=== PATIENT | female | born 1955 | race Caucasian/White ===

== ENCOUNTER 2019-03-29 16:31 | Inpatient (IN) | payer MEDICARE | END 2019-04-02 15:20 | LOC: EDH 16:31 → EDHIP 16:32 → 3CH 18:31 | DX: J96.20 Acute and chronic respiratory failure, unspecified whether with hypoxia or hypercapnia (principal); J44.1 Chronic obstructive pulmonary disease with (acute) exacerbation; Z99.81 Dependence on supplemental oxygen ==

== ENCOUNTER → 2024-05-27 | Outpatient (CLI) | payer MEDICARE ==
[~2024-05-27] MED LIST: ALBU2.5V2 IH; ALBU8.5H8 IH; BUDE10.2 IH; BUDE180A2 IH; CLOT10TR PO; TIOT18CA3 IH
== END | disposition home or self-care (01) ==
LOC: RAH 13:13
PROVIDERS: ATTEND Family Medicine
DX: I70.203 Unspecified atherosclerosis of native arteries of extremities, bilateral legs (principal); I70.211 Atherosclerosis of native arteries of extremities with intermittent claudication, right leg
CPT/HCPCS: 93925

== ENCOUNTER → 2024-08-21 | Outpatient (CLI) | payer MEDICARE ==
--- NOTE | 2024-08-22 19:13 | HMCSR ---
APPROVED REPORT EXAM: Two-dimensional and M-mode echocardiogram with Doppler and color Doppler. INDICATION ICD: R06.00 Dyspnea 2D Dimensions RVDd3.4 cmLVEF(%)65.8 (>50%)LVED Vol(simp.)70.0 mL IVSd1.2 (0.7-1.1cm)FS(%)36 %LVES Vol(simp.)28.0 mL LVDd4.1 (3.8-5.6cm)Ao Root(2D)2.9 (2.0-3.7cm)LVEF(%, simp.)60 % PWd1.1 (0.7-1.1cm)LVOT diam2.0 (1.8-2.4cm)LA ESV INDEX (BP)31.99 mL/m2 LVDs2.7 (2.5-4.0cm)IVC diam1.3 cm Aortic Valve AoV Vmax1.6 m/Nick Peak GR10.3 mmHgLVOT Vmax1.2 m/s AoV VTI0.3 mAo Mean GR4.8 mmHgLVOT VTI0.27 m ROLAND (VMAX)2.5 cm2AVA (VTI) 2.5 cm2 Mitral Valve MV E Vmax78.5 cm/sDECEL Kquo617 ms MV A Ajby170.5 cm/sP 1/2 T62 ms E/A ratio0.8MVA (PHT)3.6 cm2 MR Max PG51 mmHg TDI E/E' Qnlgfr52.2E/E' Gtigiob87.6 Pulmonary Valve PV Vmax1.2 m/sPV VTI0.25 mPV Mean GR4 mmHg PV Peak GR5.7 mmHgPI End Marylou. Peterson 1.4 cm/s Tricuspid Valve TR Vmax2.5 m/sRAP (EST) 3 oyGsXFNB34.1 mmHg TR Peak GR25.1 mmHg Left Ventricle The left ventricle structure and function is normal. There is normal LV segmental wall motion. There is mild concentric left ventricular hypertrophy. LVEF is 60-65%. The left ventricular diastolic funct ion is normal. Right Ventricle The right ventricle is normal size. The right ventricular systolic function is normal. Atria The left atrium size is normal. The right atrium size is normal. Aortic Valve Aortic valve is trileaflet. Aortic valve leaflets are sclerotic but open well. No aortic regurgitatio n is present. There is no aortic valvular stenosis. Mitral Valve Mitral valve leaflets are mildly sclerotic but open well. Mitral regurgitation is trace. There is no mitral valve stenosis. Tricuspid Valve The tricuspid valve leaflets appear normal. There is trace tricuspid regurgitation. Pulmonic Valve The pulmonic valve leaflets are thin and pliable; valve motion is normal. There is trace to mild valv ular regurgitation. Great Vessels The aortic root is normal in size. The IVC is normal in size and collapses >50% with inspiration. Pericardium No pericardial effusion. Conclusion LVEF is 60-65%. Mitral regurgitation is trace.
== END | disposition home or self-care (01) ==
LOC: SHCH 13:57
PROVIDERS: ATTEND Internal Medicine Cardiovascular Disease
DX: I08.8 Other rheumatic multiple valve diseases (principal); I87.2 Venous insufficiency (chronic) (peripheral); R06.09 Other forms of dyspnea
CPT/HCPCS: 93306

== ENCOUNTER → 2024-09-02 | Outpatient (CLI) | payer MEDICARE ==
[2024-09-02] MEDS: REGADENOSON 0.4 MG/5 ML PF SYG IVP ONE (13:14)
== END | disposition home or self-care (01) ==
LOC: SHCH 08:11
PROVIDERS: ATTEND Internal Medicine Cardiovascular Disease
DX: R06.09 Other forms of dyspnea (principal)
CPT/HCPCS: 78452; 93017; J2785; A9500 ×2